=== PATIENT | female | born 1995 | race Caucasian/White ===

== ENCOUNTER 2022-03-12 17:08 | Emergency (ER) | payer OTHER | END 2022-03-12 17:50 | disposition home or self-care (01) | LOC: CSHERS 17:08 | DX: O26.892 Other specified pregnancy related conditions, second trimester (principal); O99.612 Diseases of the digestive system complicating pregnancy, second trimester; K21.9 Gastro-esophageal reflux disease without esophagitis; Z3A.17 17 weeks gestation of pregnancy ==

== ENCOUNTER 2022-04-02 20:10 | Day surgery (SDC) | payer OTHER ==
[2022-04-02 20:56] VITALS: BMI 27.8
[2022-04-02] MEDS ORDERED: Fioricet 325/50/40 mg Tablet PO PRN (22:11)
[2022-04-02] MEDS ORDERED: Cyclobenzaprine 10 MG TAB PO SCH (22:15)
[2022-04-02] MEDS ORDERED: Lactated Ringer's 1,000 ML IV SCH (22:30)
== END 2022-04-03 02:35 | disposition home or self-care (01) ==
LOC: CSHLD/OP 20:10
PROVIDERS: ATTEND Student in an Organized Health Care Education/Training Program
DX: O26.891 Other specified pregnancy related conditions, first trimester (principal); R51.9 Headache, unspecified; R10.9 Unspecified abdominal pain; O99.341 Other mental disorders complicating pregnancy, first trimester; F41.1 Generalized anxiety disorder; Z3A.13 13 weeks gestation of pregnancy; Z79.899 Other long term (current) drug therapy; Z91.010 Allergy to peanuts; Z91.018 Allergy to other foods; Z98.890 Other specified postprocedural states
CPT/HCPCS: 70450; 96360; 96361; 99282

== ENCOUNTER 2022-05-29 19:30 | Day surgery (SDC) | payer OTHER ==
[2022-05-29 21:00] VITALS: BMI 29.4
== END 2022-05-29 21:20 | disposition home or self-care (01) ==
LOC: CSHLD/OP 19:30
PROVIDERS: ATTEND Family Medicine
DX: O36.8130 Decreased fetal movements, third trimester, not applicable or unspecified (principal); O99.413 Diseases of the circulatory system complicating pregnancy, third trimester; G90.A Postural orthostatic tachycardia syndrome [POTS]; Z79.899 Other long term (current) drug therapy; Z91.010 Allergy to peanuts; Z91.018 Allergy to other foods; Z3A.28 28 weeks gestation of pregnancy
CPT/HCPCS: 99282

== ENCOUNTER 2022-06-16 14:40 | Emergency (ER) | payer OTHER | END 2022-06-16 17:48 | disposition home or self-care (01) | LOC: CSHERS 14:40 | DX: O99.713 Diseases of the skin and subcutaneous tissue complicating pregnancy, third trimester (principal); L02.31 Cutaneous abscess of buttock; O99.891 Other specified diseases and conditions complicating pregnancy; M79.605 Pain in left leg; O99.613 Diseases of the digestive system complicating pregnancy, third trimester; K21.9 Gastro-esophageal reflux disease without esophagitis; Z3A.31 31 weeks gestation of pregnancy | CPT/HCPCS: 99283 ==